=== PATIENT | male | born 1955 | race American Indian/Alaskan Native ===

== ENCOUNTER 2021-03-24 23:41 | Emergency (ER) | payer SELFPAY ==
--- NOTE | 2021-03-25 00:07 | Emergency Department Report ---
ED CPR HPI - General Stated Complaint: CARDIAC ARREST Time Seen by Provider: 03/24/21 23:56 Source: EMS - History of Present Illness Initial Comments: Patient is 65 years old male with unknown past medical history. Patient brought to the emergency room via EMS in a full cardiac arrest, CPR in progress. EMS stated that upon arrival to the patient home patient with agonal breathing. EMS immediately started ACLS protocol patient rhythm initially was PEA and then change to asystole. Patient received 5 mg of epinephrine. Upon arrival to the ER ACLS protocol continued. Patient has an LMA with good breath sound on both side. Patient received sodium bicarb, calcium chloride and epinephrine in the ER however patient remained in asystole. Patient pronounced at 11:47 PM total resuscitation time resuscitation is 35 minutes. For further information please refer to code sheets. MD Complaint: stopped breathing Place: home Bystander CPR Performed: No AED Applied by Bystander/Engineer System Administrator: No Initial Findings in the Field: unresponsive, no respirations, no pulse Treatments Prior to Arrival: other airway device, chest compressions, epinephrine mgs # (5), sodium bicarbonate ED Review of Systems ROS: Stated complaint: CARDIAC ARREST Other details as noted in HPI Comment: Unobtainable due to pts medical conditions ED Physical Exam - General General appearance: other (CPR in progress) - Head Head exam: Present: atraumatic - Eye Pupils: Present: other (5 mm fixed and dilated.) - Respiratory Respiratory exam: Present: other (No spontaneous breathing.) - Cardiovascular Cardiovascular Exam: Present: other (No spontaneous heart tone.) - GI/Abdominal GI/Abdominal exam: Present: soft. Absent: distended - Neurological Exam Neurological exam: Present: other (CPR in progress.) Critical Care Time: Yes Critical care time in (mins) excluding proc time.: 35 Critical care attestation.: If time is entered above; I have spent that time in minutes in the direct care of this critically ill patient, excluding procedure time. ED Disposition Clinical Impression: Cardiopulmonary arrest Disposition: 20 Is pt being admited?: No Condition: Stable
== END 2021-03-25 03:45 ==
LOC: ED 23:41
DX: I46.9 Cardiac arrest, cause unspecified (principal)
CPT/HCPCS: 92950